=== PATIENT | male | born 1965 | race Caucasian/White ===

== ENCOUNTER 2017-09-26 10:26 | Emergency (ER) | payer OTHER ==
[2017-09-26 10:34] VITALS: BP 126/77
--- NOTE | 2017-09-26 11:20 | UC ---
Skin Complaint HPI - HPI Summary HPI Summary: 52 Y/O male presents with complaint of rash on lower extremities, head and most recently today eye lids. States is itchy in leg area and mildly painful on head. States rash has been present several weeks but spreading over the last several days. Denies fever, chills, dyspnea, chest pain, abdominal pain, nausea or vomiting. States only recent changes are changes in cholesterol medication and an increase in his levothyroxine. he has not taken these medications for several days. Family history significant for CAD. Medications and medical history reviewed at this visit. - History of Current Complaint Chief Complaint: UCRash Time Seen by Provider: 09/26/17 10:51 Stated Complaint: RASH Hx Obtained From: Patient Onset/Duration: Gradual Onset, Lasting Weeks, Still Present Timing: Constant Onset Severity: Mild Current Severity: Moderate Pain Intensity: 0 Pain Scale Used: 0-10 Numeric Location: Other - Bilateral lower extremities, primarily thighs to groin. Front of head scalp Character: Pruritus, Redness, Raised Aggravating Factor(s): Nothing Alleviating Factor(s): Antihistamines Associated Signs & Symptoms: Positive: Negative - Allergy/Home Medications Allergies/Adverse Reactions: Allergies Allergy/AdvReac Type Severity Reaction Status Date / Time Penicillins [PCN] Allergy Severe Swelling Verified 11/19/13 12:47 Bee Stings Allergy Swelling Uncoded 09/26/17 10:35 Home Medications: Home Medications Atorvastatin* [Lipitor 20 MG*] 20 mg PO DAILY 09/26/17 [History Confirmed ] Levothyroxine TAB* [Synthroid 100 MCG TAB*] 1 tab PO DAILY 09/26/17 [History Confirmed 09/26/17] Pro Air 2 puff INH Q4HR PRN 09/26/17 [History Confirmed 09/26/17] Umeclidin/Vilant 62.5 MDI(NF) [ANORO 62.5/25 Ellipta DEVICE (NF)] 1 puff INH DAILY 09/26/17 [History Confirmed 09/26/17] Review of Systems Constitutional: Negative Skin: Rash Eyes: Negative ENT: Negative Respiratory: Negative Cardiovascular: Negative Gastrointestinal: Negative Genitourinary: Negative Motor: Negative Neurovascular: Negative Musculoskeletal: Negative Neurological: Negative Psychological: Negative Is Patient Immunocompromised?: No All Other Systems Reviewed And Are Negative: Yes PMH/Surg Hx/FS Hx/Imm Hx Previously Healthy: Yes Endocrine History: Hyperthyroidism, Dyslipidemia Other History Of: Negative For: Anticoagulant Therapy - Surgical History Surgical History: None - Social History Alcohol Use: None Substance Use Type: None Smoking Status (MU): Former Smoker Length of Time of Smoking/Using Tobacco: 30 years ago When Did the Patient Quit Smoking/Using Tobacco: 4 years ago - Immunization History Most Recent Tetanus Shot: unknown Physical Exam Triage Information Reviewed: Yes Appearance: Well-Appearing Vital Signs: Initial Vital Signs Temp 98.1 F 09/26/17 10:28 Pulse 77 09/26/17 10:28 Resp 18 09/26/17 10:28 BP 126/77 09/26/17 10:28 Pulse Ox 99 09/26/17 10:28 Vital Signs Reviewed: Yes Eye Exam: Normal ENT Exam: Normal Neck exam: Normal Neck: Positive: Supple Respiratory Exam: Normal Respiratory: Positive: Lungs clear Musculoskeletal Exam: Normal Musculoskeletal: Positive: Strength Intact Neurological Exam: Normal Neurological: Positive: Alert Psychological Exam: Normal Skin: Positive: rashes Course/Dx - Differential Diagnoses - Skin Complaint Differential Diagnoses: Contact Dermatitis, Local Allergic Reaction, Urticaria - Diagnoses Provider Diagnoses: Dermatitis Discharge - Discharge Plan Condition: Stable Disposition: HOME Patient Education Materials: Contact Dermatitis (ED) Referrals: No Primary Care Phys,NOPCP [Primary Care Provider] - Additional Instructions: Your strep test was negative. Please take medications as directed and follow up with your primary medical provider on Saturday. You may return to the urgent care as needed for any worsening of symptoms.
== END 2017-09-26 12:05 | disposition home or self-care (01) ==
LOC: UCEAST 10:26
DX: L30.9 Dermatitis, unspecified (principal); E05.90 Thyrotoxicosis, unspecified without thyrotoxic crisis or storm; E78.5 Hyperlipidemia, unspecified; Z87.891 Personal history of nicotine dependence
CPT/HCPCS: 36415; 84443; 87651; 99212; G0463

== ENCOUNTER 2018-01-16 11:16 | Emergency (ER) | payer OTHER ==
[2018-01-16] MEDS ORDERED: NS 0.9% 1000 ML* 1,000 ML IV ONE (11:52)
[2018-01-16 12:25] LABS: Hematocrit 46 % (42-52); Hemoglobin 15.4 g/dl (14.0-18.0); Mean Corpuscular HGB Conc 34 g/dl (31-36); Mean Corpuscular Hemoglobin 30 pg (27-31); Mean Corpuscular Volume 90 fL (80-94); Mean Platelet Volume 11 um3 (7.4-10.4); Platelet Count 159 10^3/ul (150-450); Red Cell Distribution Width 14 % (10.5-15); White Blood Count 6.7 10^3/ul (3.5-10.8)
[2018-01-16 12:47] LABS: EGFR Non-African American 60.3 (>60)
[2018-01-16 12:49] LABS: ABS Basophils 0.1 10^3/ul (0-0.2); ABS Eosinophils 0 10^3/ul (0-0.6); ABS Lymphocytes 0.5 10^3/ul (1.0-4.8); ABS Monocytes 0.7 10^3/ul (0-0.8); ABS Neutrophils 5.4 10^3/ul (1.5-7.7); ABS Nucleated RBC 0 10^3/ul; Eosinophil % 0.2 % (0-6); Lymphocyte % 7.7 % (25-47); Nucleated Red Blood Cells % 0.1
--- NOTE | 2018-01-16 12:56 | RAD ---
INDICATION: Syncope COMPARISON: December 03, 2011 TECHNIQUE: PA and lateral dual-energy views were obtained. FINDINGS: Bones/Soft Tissues: There are no acute bony findings. Cardiomediastinal: The cardiomediastinal silhouette is normal. Lungs: There are no infiltrates. Pleura: There are no pleural effusions. Other: None IMPRESSION: NO ACTIVE DISEASE.
[2018-01-16] MEDS ORDERED: Oseltamivir CAP* 75 MG CAP PO ONE (15:35)
[2018-01-16] MEDS ORDERED: Acetaminophen TAB* 325 MG PO ONE (15:49)
[2018-01-16] MEDS ORDERED: Acetaminophen TAB* 325 MG ONE (15:50)
[2018-01-16 15:59] VITALS: BP 110/78
--- NOTE | 2018-01-17 17:43 | ED ---
Octavio Welch Angela, scribed for Karel Bro MD on 01/16/18 at 1155 . Syncope/Near Syncope - HPI Summary HPI Summary: This pt is a 52 y/o male presenting to [facility] via EMS c/o coughing fits with syncope today. Pt reports he was at his PCP's office, Dr. Cannon, for routine blood work when he had a coughing fit. While she was coughing he had a syncopal episode. He notes that he almost syncopized while he was driving today. Pt additionally reports headache, sore throat, fever. He notes his cough is dry, non-productive. Denies chest pain, palpitations. - History Of Current Complaint Chief Complaint: EDSyncope Time Seen by Provider: 01/16/18 11:24 Hx Obtained From: Patient Onset/Duration: Sudden Onset, Lasting Hours Timing: Hours Context: Witnessed Activity At Onset: Other - while coughing Aggravating Factor(s): Other - cough Alleviating Factor(s): Nothing Associated Signs And Symptoms: Headache, Other - POS: sore throat, fever, dry cough. NEG: chest pain, palpitation - Allergies/Home Medications Allergies/Adverse Reactions: Allergies Allergy/AdvReac Type Severity Reaction Status Date / Time MS Penicillins [PCN] Allergy Severe Swelling Verified 11/19/13 12:47 Bee Stings Allergy Swelling Uncoded 09/26/17 10:35 Home Medications: Home Medications ARIPiprazole TAB* [Abilify TAB*] 10 mg PO DAILY 01/16/18 [History Confirmed ] Benzonatate CAP* [Tessalon 100 MG CAP*] 100 mg PO TID PRN 01/16/18 [History Confirmed 01/16/18] Sertraline* [Zoloft*] 50 mg PO DAILY 01/16/18 [History Confirmed 01/16/18] Simvastatin TAB(NF) [Zocor(NF)] 20 mg PO DAILY 01/16/18 [History Confirmed 01/16] methylPREDNISolone TAB* [Medrol TAB*] 4 - 8 mg PO .SEE PAUL 01/16/18 [History Confirmed 01/16/18] PMH/Surg Hx/FS Hx/Imm Hx Endocrine/Hematology History: Reports: Hx Thyroid Disease Denies: Hx Anticoagulant Therapy, Hx Diabetes Cardiovascular History: Denies: Hx Hypertension Respiratory History: Reports: Hx Chronic Obstructive Pulmonary Disease (COPD) - nodules on lung Denies: Hx Asthma GI History: Denies: Hx Ulcer Comment Only: Other GI Disorders - hiatal hernia Psychiatric History: Reports: Hx Depression, Hx Inpatient Treatment Denies: Hx Eating Disorder Infectious Disease History: No Infectious Disease History: Denies: Hx Hepatitis, Hx Human Immunodeficiency Virus (HIV), History Other Infectious Disease, Traveled Outside the [place] in Last 30 Days - Family History Known Family History: Positive: Cardiac Disease - Grandfather- [place] - Social History Alcohol Use: None Substance Use Type: Reports: None Smoking Status (MU): Former Smoker Length of Time of Smoking/Using Tobacco: 30 years ago Review of Systems Positive: Fever Positive: Sore Throat Negative: Chest Pain Positive: Cough Positive: Headache, Syncope All Other Systems Reviewed And Are Negative: Yes Physical Exam - Summary Physical Exam Summary: VITAL SIGNS: Reviewed. GENERAL: Patient is a well-developed and nourished male who is lying comfortable in the stretcher. Patient is not in any acute respiratory distress. HEAD AND FACE: No signs of trauma. No ecchymosis, hematomas or skull depressions. No sinus tenderness. EYES: PERRLA, EOMI x 2, No injected conjunctiva, no nystagmus. EARS: Hearing grossly intact. Ear canals and tympanic membranes are within normal limits. MOUTH: Oropharynx within normal limits. NECK: Supple, trachea is midline, no adenopathy, no JVD, no carotid bruit, no c- spine tenderness, neck with full ROM. CHEST: Symmetric, no tenderness at palpation LUNGS: Crackles in both bases of the lungs. CVS: Tachycardic rate and regular rhythm, S1 and S2 present, no murmurs or gallops appreciated. ABDOMEN: Soft, non-tender. No signs of distention. No rebound no guarding, and no masses palpated. Bowel sounds are normal. EXTREMITIES: FROM in all major joints, no edema, no cyanosis or clubbing. NEURO: Alert and oriented x 3. No acute neurological deficits. Speech is normal and follows commands. SKIN: Dry and pt feels warm. Triage Information Reviewed: Yes Vital Signs On Initial Exam: Initial Vitals Temp Pulse Resp BP Pulse Ox 100.2 F 103 25 123/85 98 01/16/18 11:19 01/16/18 11:19 01/16/18 11:19 01/16/18 11:19 01/16/18 11:19 Vital Signs Reviewed: Yes Diagnostics - Vital Signs Vital Signs Temp Pulse Resp BP Pulse Ox 01/16/18 11:19 100.2 F 103 25 123/85 98 - Laboratory Lab Results: Lab Results 01/16/18 01/16/18 01/16/18 Range/Units 12:13 12:13 12:13 WBC 6.7 (3.5-10.8) 10^3/ul RBC 5.10 (4.0-5.4) 10^6/ul Hgb 15.4 (14.0-18.0) g/dl Hct 46 (42-52) % MCV 90 (80-94) fL MCH 30 (27-31) pg MCHC 34 (31-36) g/dl RDW 14 (10.5-15) % Plt Count 159 (150-450) 10^3/ul MPV 11 H (7.4-10.4) um3 Neut % (Auto) 81.3 (38-83) % Lymph % (Auto) 7.7 L (25-47) % [place] % (Auto) 10.0 H (0-7) % Eos % (Auto) 0.2 (0-6) % Baso % (Auto) 0.8 (0-2) % Absolute Neuts (auto) 5.4 (1.5-7.7) 10^3/ul Absolute Lymphs (auto) 0.5 L (1.0-4.8) 10^3/ul Absolute Monos (auto) 0.7 (0-0.8) 10^3/ul Absolute Eos (auto) 0 (0-0.6) 10^3/ul Absolute Basos (auto) 0.1 (0-0.2) 10^3/ul Absolute Nucleated RBC 0 10^3/ul Nucleated RBC % 0.1 Sodium (133-145) mmol/L Potassium (3.5-5.0) mmol/L Chloride (101-111) mmol/L Carbon Dioxide (22-32) mmol/L Anion Gap (2-11) mmol/L BUN (6-24) mg/dL Creatinine (0.67-1.17) mg/dL Est GFR ( Amer) (>60) Est GFR (Non-Af Amer) (>60) BUN/Creatinine Ratio (8-20) Glucose (70-100) mg/dL Lactic Acid 1.3 (0.5-2.0) mmol/L Calcium (8.6-10.3) mg/dL Magnesium (1.9-2.7) mg/dL Total Bilirubin (0.2-1.0) mg/dL AST (13-39) U/L ALT (7-52) U/L Alkaline Phosphatase (34-104) U/L Troponin I (<0.04) ng/mL B-Natriuretic Peptide 13 ( - 100) pg/mL Total Protein (6.4-8.9) g/dL Albumin (3.2-5.2) g/dL Globulin (2-4) g/dL Albumin/Globulin Ratio (1-3) TSH (0.34-5.60) mcIU/mL Influenza A (Rapid) (Negative) Influenza B (Rapid) (Negative) 01/16/18 01/16/18 Range/Units 12:13 15:00 WBC (3.5-10.8) 10^3/ul RBC (4.0-5.4) 10^6/ul Hgb (14.0-18.0) g/dl Hct (42-52) % MCV (80-94) fL MCH (27-31) pg MCHC (31-36) g/dl RDW (10.5-15) % Plt Count (150-450) 10^3/ul MPV (7.4-10.4) um3 Neut % (Auto) (38-83) % Lymph % (Auto) (25-47) % [place] % (Auto) (0-7) % Eos % (Auto) (0-6) % Baso % (Auto) (0-2) % Absolute Neuts (auto) (1.5-7.7) 10^3/ul Absolute Lymphs (auto) (1.0-4.8) 10^3/ul Absolute Monos (auto) (0-0.8) 10^3/ul Absolute Eos (auto) (0-0.6) 10^3/ul Absolute Basos (auto) (0-0.2) 10^3/ul Absolute Nucleated RBC 10^3/ul Nucleated RBC % Sodium 135 (133-145) mmol/L Potassium 3.8 (3.5-5.0) mmol/L Chloride 103 (101-111) mmol/L Carbon Dioxide 23 (22-32) mmol/L Anion Gap 9 (2-11) mmol/L BUN 10 (6-24) mg/dL Creatinine 1.26 H (0.67-1.17) mg/dL Est GFR ( Amer) 77.6 (>60) Est GFR (Non-Af Amer) 60.3 (>60) BUN/Creatinine Ratio 7.9 L (8-20) Glucose 102 H (70-100) mg/dL Lactic Acid (0.5-2.0) mmol/L Calcium 9.7 (8.6-10.3) mg/dL Magnesium 2.0 (1.9-2.7) mg/dL Total Bilirubin 0.40 (0.2-1.0) mg/dL AST 62 H (13-39) U/L ALT 90 H (7-52) U/L Alkaline Phosphatase 63 (34-104) U/L Troponin I 0.00 (<0.04) ng/mL B-Natriuretic Peptide ( - 100) pg/mL Total Protein 7.9 (6.4-8.9) g/dL Albumin 4.4 (3.2-5.2) g/dL Globulin 3.5 (2-4) g/dL Albumin/Globulin Ratio 1.3 (1-3) TSH 0.57 (0.34-5.60) mcIU/mL Influenza A (Rapid) Positive A (Negative) Influenza B (Rapid) Negative (Negative) Result Diagrams: 01/16/18 12:13 01/16/18 12:13 Lab Statement: Any lab studies that have been ordered have been reviewed, and results considered in the medical decision making process. - Radiology Chest XR Xray Interpretation: No Acute Changes - IMPRESSION: No active disease. Dr. Bro has reviewed this radiology report. Radiology Interpretation Completed By: Radiologist - EKG 11:27 Cardiac Rate: NL EKG Rhythm: Sinus Rhythm - at 97 bpm EKG Interpretation: No ST elevations. Re-Evaluation - Re-Evaluation First Eval Re-Evaluation Time: 15:46 Comment: I reviewed the lab and XR results with the pt. He will be discharged to home. Course/Dx Assessment/Plan: This pt is a 52 y/o male presenting to [facility] via EMS c/o coughing fits with syncope today. Pt reports he was at his PCP's office, Dr. Cannon, for routine blood work when he had a coughing fit. While she was coughing he had a syncopal episode. He notes that he almost syncopized while he was driving today. Pt additionally reports headache, sore throat, fever. He notes his cough is dry, non-productive. Denies chest pain, palpitations. Test results without any significant abnormalities except for AST of 62 and ALT of 90. Influenza A is positive. Influenza B is negative. Chest XR: No active disease. EKG shows normal sinus rhythm without ST elevations. In the ED course the pt was given IV fluids, Tamiflu for the flu, and Tylenol for the fever. Therefore pt will be discharged to home with follow up from his PCP. He will be given a prescription for Tamiflu for the flu. I discussed all the findings and test results with the patient. Patient was instructed to return to the emergency room immediately if any of the symptoms return or worsens. Plan of care was discussed with the patient and understands and agrees. All questions were answered at patient satisfaction. There were no further complaints or concerns. He is instructed to return to the ED for any worsening or new symptoms. Pt is hemodynamically stable, alert and oriented x3. - Diagnoses Differential Diagnosis/HQI/PQRI: Positive: Cerebral Vascular Accident, Transient Ischemic Attack, Vasovagal Episode Provider Diagnoses: Influenza A Discharge - Discharge Plan Condition: Stable Disposition: HOME Prescriptions: Oseltamivir CAP* [Tamiflu CAP*] 75 mg PO BID #10 cap Patient Education Materials: Influenza (ED) Referrals: Alysha Cannon MD [Primary Care Provider] - 3 Days Additional Instructions: Please follow up with your primary care provider. RETURN TO THE ED FOR ANY WORSENING SYMPTOMS. The documentation as recorded by the Octavio peterson Angela accurately reflects the service I personally performed and the decisions made by me, Karel Bro MD.
== END 2018-01-16 16:01 | disposition home or self-care (01) ==
LOC: ED 11:16
DX: J10.1 Influenza due to other identified influenza virus with other respiratory manifestations (principal); E07.9 Disorder of thyroid, unspecified; F32.9 Major depressive disorder, single episode, unspecified; Z87.891 Personal history of nicotine dependence; Z88.0 Allergy status to penicillin
CPT/HCPCS: 36415; 71046; 80053; 83605; 83735; 83880; 84443; 84484; 85025; 87502; 93005; 96360; 99282; A9270-GY